=== PATIENT | male | born 1960 | race Two or more races ===

== ENCOUNTER 2016-12-23 11:49 | Emergency (ER) | payer MEDICAID ==
[~2016-12-23] VITALS: Ht 165.1 cm; Wt 75.0 kg
[~2016-12-23 11:49] MED LIST: BUTA-177 PO; CIPR500T3 PO; METR500T PO
[2016-12-23 11:51] VITALS: BP 135/91
[2016-12-23] MEDS ORDERED: DIAZEPAM 5 MG TABLET ONE (12:23)
[2016-12-23] MEDS ORDERED: KETOROLAC 30 MG/1 ML ONE (12:24)
[2016-12-23] MEDS ORDERED: DIAZEPAM 5 MG TABLET PO ONE (12:30)
[2016-12-23] MEDS ORDERED: KETOROLAC 30 MG/1 ML IM ONE (12:30)
== END 2016-12-23 14:07 | disposition home or self-care (01) ==
LOC: ED 14:01
DX: M51.36 Other intervertebral disc degeneration, lumbar region (principal); M48.06 Spinal stenosis, lumbar region; M51.16 Intervertebral disc disorders with radiculopathy, lumbar region; G89.29 Other chronic pain; M54.5 Low back pain
CPT/HCPCS: 96372; 99283; J1885

== ENCOUNTER 2019-12-22 13:22 | Emergency (ER) | payer MEDICARE ==
[~2019-12-22] VITALS: Ht 167.6 cm; Wt 78.2 kg
--- NOTE | 2019-12-22 13:43 | NUR ---
P PLACED ON GURNE. O2 AND NIBP MONITORING IN PLACE. IV ACCESS OBTAINED AND LABS DRAWN. CALL LIGHT IN REACH AND AWAITING PROVIDER EVAL.
[2019-12-22] MEDS ORDERED: HYDROmorphone 1 MG/ML, 1ML INJ ONE (13:58)
[2019-12-22] MEDS ORDERED: ONDANSETRON 2MG/ML, 2ML ONE (13:59)
[2019-12-22] MEDS ORDERED: HYDROmorphone 2 MG/ML, 1ML IVPush PRN (14:00)
[2019-12-22] MEDS ORDERED: SODIUM CHLORIDE FLUSH 10ML SYR IVF ONE (14:00)
[2019-12-22] MEDS ORDERED: ONDANSETRON 2MG/ML, 2ML IVPush ONE (14:00)
--- NOTE | 2019-12-22 14:09 | NUR ---
Pt medicated for pain.
--- NOTE | 2019-12-22 14:10 | NUR ---
Pt arrives to ed with lower left quadrant abd pain. Pt reports that it feels similar to his last diverticulitis flare up. Pt reports that the pain is ubareable. Pt also reports substernal chest pain starting after the abd pain. Pt denies any trauma, bloody stool or etoh ingestion. Pt is calm and cooperative but does grimace with movement.
--- NOTE | 2019-12-22 14:15 | NUR ---
EKG completed by Jim BELLO
[2019-12-22 14:20] LABS: MEAN CORPUSCULAR HGB CONC 32.9 g/dL (33.2-36.2); MEAN CORPUSCULAR VOLUME 85.4 fL (81-97); MEAN PLATELET VOLUME 8.6 fL (7.4-10.4); PLATELET COUNT 285 x10^3/uL (130-400); RED BLOOD COUNT 5.04 x10^6/uL (4.38-5.82); RED CELL DISTRIBUTION WIDTH 13.3 % (9.4-14.8)
[2019-12-22 14:25] LABS: ALBUMIN 3.3 g/dL (3.4-5.0); ANION GAP 5 mmol/L (5-15); CALCIUM 8.3 mg/dL (8.5-10.1); CHLORIDE 111 mmol/L (98-107)
[2019-12-22 14:28] LABS: ALANINE AMINOTRANSFERASE 23 U/L (12-78); ALKALINE PHOSPHATASE 72 U/L (45-117); BILIRUBIN,TOTAL 0.7 mg/dL (0.2-1.0); CREATININE 0.94 mg/dL (0.7-1.3); TOTAL PROTEIN 6.9 g/dL (6.4-8.2)
[2019-12-22 14:40] LABS: BASOPHILS # (AUTO) 0.01 x10^3/uL (0-0.1); BASOPHILS % (AUTO) 0 % (0-1); EOSINOPHILS # (AUTO) 0.14 x10^3/uL (0-0.4); EOSINOPHILS % (AUTO) 1 % (1-7); LYMPHOCYTES # (AUTO) 1.21 x10^3/uL (1-3.4); LYMPHOCYTES % (AUTO) 11 % (22-44); MD SCAN; MONOCYTES # (AUTO) 0.82 x10^3/uL (0.2-0.8); MONOCYTES % (AUTO) 7 % (2-9); NEUTROPHILS # (AUTO) 9.15 x10^3/uL (1.8-6.8); NEUTROPHILS % (AUTO) 81 % (42-75)
[2019-12-22] MEDS ORDERED: ACETAMINOPHEN 500 MG TABLET ONE (15:17)
[2019-12-22] MEDS ORDERED: ACETAMINOPHEN 500 MG TABLET PO ONE (15:30)
[2019-12-22 15:37] LABS: MICROSCOPIC NOT IND
--- NOTE | 2019-12-22 15:57 | NUR ---
Pt to CT
[2019-12-22] MEDS ORDERED: OMNIPAQUE 350 MG/ML, 100ML BOTTLE ONE (16:09)
[2019-12-22] MEDS ORDERED: AMPICILLIN/SULBACTAM 3 GM in SODIUM CHLORIDE 0.9% 100 ML IV ONE (16:30)
[2019-12-22] MEDS ORDERED: METRONIDAZOLE PMX 500MG/100ML 100 ML IV ONE (16:30)
[2019-12-22] MEDS ORDERED: METRONIDAZOLE PMX 500MG/100ML 100 ML ONE (16:35)
--- NOTE | 2019-12-22 16:42 | NUR ---
Pt abx started.
[2019-12-22 17:23] VITALS: BP 129/86
--- NOTE | 2019-12-22 17:24 | NUR ---
Second abx started.
--- NOTE | 2019-12-22 17:58 | NUR ---
Patient/Caregiver given discharge instructions and they have confirmed that they understand the instructions. Patient ambulatory with steady gait.
== END 2019-12-22 18:17 | disposition home or self-care (01) ==
LOC: ED 18:01
DX: R10.32 Left lower quadrant pain (principal); R11.0 Nausea; R19.7 Diarrhea, unspecified; R94.31 Abnormal electrocardiogram [ECG] [EKG]; I10 Essential (primary) hypertension; I25.2 Old myocardial infarction
CPT/HCPCS: 36415; 74177; 80053; 81003; 83605; 85025; 93005; 96365; 96366; 96368; 96375; 99285; J0295; J1170; J2405; Q9967

== ENCOUNTER 2020-03-21 20:58 | Emergency (ER) | payer MEDICARE, MEDICAID ==
[~2020-03-21] VITALS: Ht 165.1 cm; Wt 78.0 kg
[2020-03-21] MEDS ORDERED: LIDOCAINE-MPF 1%, 5ML ONE (21:14)
[2020-03-21] MEDS ORDERED: DIPH,PERTUSS(ACELL),TET VAC/PF 0.5 ML IM-VACC ONE ×2 (21:15→21:30)
[2020-03-21] MEDS ORDERED: LIDOCAINE 1%, 10ML INFIL ONE (21:30)
[2020-03-21] MEDS ORDERED: SODIUM CHLORIDE FLUSH 10ML SYR IVF ONE (21:30)
[2020-03-21] MEDS ORDERED: SODIUM CHLORIDE 0.9% 1,000ML IVBOLUS ONE (21:30)
[2020-03-21 21:31] LABS: BASOPHILS % (AUTO) 0 % (0-1); EOSINOPHILS % (AUTO) 0 % (1-7); LYMPHOCYTES % (AUTO) 7 % (22-44); MEAN CORPUSCULAR HEMOGLOBIN 27.4 pg (27.5-34.5); MEAN CORPUSCULAR HGB CONC 32.6 g/dL (33.2-36.2); MEAN PLATELET VOLUME 7.9 fL (7.4-10.4); MONOCYTES % (AUTO) 7 % (2-9); NEUTROPHILS % (AUTO) 86 % (42-75); PLATELET COUNT 324 x10^3/uL (130-400); RED BLOOD COUNT 5.47 x10^6/uL (4.38-5.82); RED CELL DISTRIBUTION WIDTH 13.9 % (9.4-14.8)
[2020-03-21 21:34] LABS: ALANINE AMINOTRANSFERASE 36 U/L (12-78); ALBUMIN 4.1 g/dL (3.4-5.0); ANION GAP 10 mmol/L (5-15); CALCIUM 8.8 mg/dL (8.5-10.1); CHLORIDE 103 mmol/L (98-107)
[2020-03-21 21:38] LABS: ALKALINE PHOSPHATASE 82 U/L (45-117); BILIRUBIN,TOTAL 0.6 mg/dL (0.2-1.0); TOTAL PROTEIN 7.4 g/dL (6.4-8.2); TROPONIN I 0.041 ng/mL (0.000-0.045)
--- NOTE | 2020-03-21 21:43 | NUR ---
BRIDGET. Provider at bedside upon arrival. A&o x4, answering questions appropriately. Speaking in clear, full sentences. Pt states, "I took a few trazadone to go to bed and had 3 vodka drinks. I must have fallen." (+) LOC, denies thinners. Full thickness lac noted to L lower lip. Bleeding controlled upon arrival. Unknown tetanus status. Denies chest pain/SOB. Denies abd pain, N/V/D. Neurologically intact, see neuro assessment for additional details. NSR noted on monitor. Able to ambulate from EMS to ED stretcher independently, steady gait
--- NOTE | 2020-03-21 21:52 | NUR ---
Provider at bedside suturing
[2020-03-21 22:03] LABS: MD MORPH REVIEW ONLY
[2020-03-21 22:04] LABS: ANISOCYTOSIS 1+; HYPOCHROMIA 1+; OVALOCYTES 1+; TEAR DROPS 1+
[2020-03-21 22:05] LABS: <PLATELET ESTIMATE> ADEQUATE; <PLT MORPHOLOGY> NORMAL PLT MORPH
[2020-03-21 22:59] VITALS: BP 124/79
== END 2020-03-21 23:02 | disposition home or self-care (01) ==
LOC: ED 21:00
DX: S01.511A Laceration without foreign body of lip, initial encounter (principal); R55 Syncope and collapse; N28.9 Disorder of kidney and ureter, unspecified; F10.10 Alcohol abuse, uncomplicated; I10 Essential (primary) hypertension; X58.XXXA Exposure to other specified factors, initial encounter; Y93.89 Activity, other specified; Y92.89 Other specified places as the place of occurrence of the external cause; Y99.8 Other external cause status; Y90.9 Presence of alcohol in blood, level not specified
CPT/HCPCS: 12052; 36415; 71045; 80053; 84484; 85025; 90471; 90715; 93005; 96360; 99285; J3490; J7030

== ENCOUNTER 2020-03-26 12:28 | Emergency (ER) | payer MEDICARE, MEDICAID ==
[~2020-03-26] VITALS: Ht 162.6 cm; Wt 77.8 kg
[2020-03-26 12:34] VITALS: BP 154/100
[2020-03-26] MEDS ORDERED: NEOSPORIN OINT. PKT 1 PACKET ONE (12:45)
--- NOTE | 2020-03-26 13:25 | NUR ---
MANAGER EMPLOYEE RELATIONS: Patient given discharge instructions and they have confirmed that they understand the instructions. Patient ambulatory with steady gait.
== END 2020-03-26 13:27 | disposition home or self-care (01) ==
LOC: ED 12:40
DX: S01.511D Laceration without foreign body of lip, subsequent encounter (principal); Z48.02 Encounter for removal of sutures; X58.XXXD Exposure to other specified factors, subsequent encounter
CPT/HCPCS: 99282

== ENCOUNTER 2021-01-15 13:50 | Emergency (ER) | payer MEDICARE, MEDICAID ==
[~2021-01-15 13:50] MED LIST changes: -CIPR500T3 PO; +CIPR500T4 PO
--- NOTE | 2021-01-15 14:15 | NUR ---
[phone]
--- NOTE | 2021-01-15 14:24 | NUR ---
[email or web address] @[phone]
--- NOTE | 2021-01-15 14:34 | NUR ---
[email or web address]@[phone]
== END 2021-01-15 14:36 | disposition left against medical advice (07) ==
LOC: ED 14:30
DX: R05 Cough (principal); R53.83 Other fatigue; Z53.21 Procedure and treatment not carried out due to patient leaving prior to being seen by health care provider

== ENCOUNTER 2021-01-19 10:01 | Emergency (ER) | payer MEDICARE, MEDICAID ==
[~2021-01-19] VITALS: Ht 165.1 cm; Wt 70.7 kg
--- NOTE | 2021-01-19 10:23 | NUR ---
PT BIB EMS CO FLU LIKE SYMPTOMS - COUGH, FEVERS, CHILLS, BODY ACHES, SOB X 3-4 DAYS. PT CAME TO ER EARLIER THIS WEEK BUT WENT HOME BECAUSE THE WAIT WAS TOO LONG. PT DID NOT GET COVID VACCINE. EKG COMPLETE. PT CONNECTED TO ALL MONITORING EQUIPMENT. MD IS BEDSIDE FOR ASSESSMENT.
--- NOTE | 2021-01-19 10:25 | NUR ---
PT RECIEVED 4MG ZOFRAN AND 250 ML NORMAL SALINE [employer].
[2021-01-19] MEDS ORDERED: PLEASE ENTER HEIGHT AND WEIGHT MC SCH (10:30)
[2021-01-19] MEDS ORDERED: KETOROLAC 30 MG/1 ML IVPush ONE (10:30)
[2021-01-19] MEDS ORDERED: KETOROLAC 30 MG/1 ML ONE (10:39)
--- NOTE | 2021-01-19 11:09 | NUR ---
BLOOD CULTURES DRAWN X 2. PT MEDICATED PER MAR
[2021-01-19 11:13] LABS: BASOPHILS % (AUTO) 0 % (0-1); EOSINOPHILS % (AUTO) 0 % (1-7); LYMPHOCYTES % (AUTO) 14 % (22-44); MEAN CORPUSCULAR HEMOGLOBIN 28.2 pg (27.5-34.5); MEAN CORPUSCULAR HGB CONC 33.7 g/dL (33.2-36.2); MEAN PLATELET VOLUME 8.7 fL (7.4-10.4); MONOCYTES % (AUTO) 8 % (2-9); NEUTROPHILS % (AUTO) 78 % (42-75); PLATELET COUNT 170 x10^3/uL (130-400); RED BLOOD COUNT 6.12 x10^6/uL (4.38-5.82); RED CELL DISTRIBUTION WIDTH 14.3 % (9.4-14.8)
[2021-01-19 11:21] LABS: ALANINE AMINOTRANSFERASE 30 U/L (12-78); ALBUMIN 3.2 g/dL (3.4-5.0); ANION GAP 10 mmol/L (5-15); CALCIUM 8.1 mg/dL (8.5-10.1); CHLORIDE 97 mmol/L (98-107)
[2021-01-19 11:27] LABS: ALKALINE PHOSPHATASE 89 U/L (45-117); BILIRUBIN,TOTAL 0.5 mg/dL (0.2-1.0); TOTAL PROTEIN 7.3 g/dL (6.4-8.2)
--- NOTE | 2021-01-19 11:59 | NUR ---
COVID SWAB WALKED TO LAB
[2021-01-19 12:32] VITALS: BP 158/107
== END 2021-01-19 13:26 | disposition home or self-care (01) ==
LOC: ED 10:33
DX: U07.1 COVID-19 (principal); J12.82 Pneumonia due to coronavirus disease 2019; I10 Essential (primary) hypertension
CPT/HCPCS: 36415; 71045; 80053; 83605; 84145; 85025; 86140; 87040; 93005; 96374; 99285; J1885; U0003; U0005